=== PATIENT | male | born 1965 ===

== ENCOUNTER 2021-07-13 20:10 | Emergency (ER) | payer SELFPAY ==
--- NOTE | 2021-07-13 22:33 | Emergency Department Report ---
ED Shortness of Breath HPI - General Chief Complaint: Dyspnea/Respdistress Stated Complaint: SOB Time Seen by Provider: 07/13/21 21:49 Source: EMS Mode of arrival: Stretcher Limitations: No Limitations - History of Present Illness Initial Comments: 56-year-old male with a past medical history of gout and smoking presents to the hospital with complaints of sudden onset of shortness of breath after taking ibuprofen and indomethacin together because of right great toe. Shortly afterwards patient developed right hand tremor, shortness of breath, and lig htheadedness. Symptoms resolved 30 minutes after ED arrival. As per triage document patient had a resting saturation 90% and received 2 L nasal cannula. Patient denies receiving oxygen or any other treatment around to the hospital. Is currently asymptomatic reports feeling better. Denies cough or cold symptoms, fever, loss of sense of taste or smell, he is unvaccinated for Covid. He denies hearing wheezing or history of COPD, PE, or DVT - Related Data Allergies Allergy/AdvReac Type Severity Reaction Status Date / Time No Known Allergies Allergy Unverified 07/13/21 22:11 ED Review of Systems ROS: Stated complaint: SOB Other details as noted in HPI Comment: All other systems reviewed and negative ED Past Medical Hx - Past Medical History Previous Medical History?: Yes Additional medical history: GOUT - Surgical History Past Surgical History?: No ED Physical Exam - General Limitations: No Limitations - Other Other exam information: General: No acute distress Head: Atraumatic Eyes: normal appearance ENT: Moist mucous membranes Neck: Normal appearance, no midline tenderness Chest: Clear to auscultation bilaterally CV: Regular rate and rhythm Abdomen: Soft, normal bowel sounds, nontender, nondistended, no rebound or guarding Back: Normal inspection Extremity: Normal inspection, full range of motion, no calf tenderness or leg edema Neuro: Alert O x 3, no facial asymmetry, speech clear, no gross motor sensory deficit Psych: Appropriate behavior Skin: No rash ED Course Vital Signs 07/13/21 07/13/21 20:10 23:00 Temperature 98.7 F Pulse Rate 68 73 Respiratory 18 17 Rate Blood Pressure 142/93 140/92 [Right] O2 Sat by Pulse 94 98 Oximetry ED Medical Decision Making - EKG Data -: EKG Interpreted by Me EKG shows normal: sinus rhythm, intervals (qtc normal), QRS complexes (qrsd normal), ST-T waves (no stemi) Rate: normal - EKG Data When compared to previous EKG there are: previous EKG unavailable - Radiology Data Radiology results: report reviewed Chest x-ray normal - Medical Decision Making 56-year-old male presents to the hospital with transient symptoms after taking indomethacin and ibuprofen which has since resolved. Vital signs within normal range and remained so upon repeat values. Chest x-ray normal. Patient asymptomatic. Patient counseled to only take indomethacin and do not take it with ibuprofen since they are both NSAIDs Critical Care Time: No Critical care attestation.: If time is entered above; I have spent that time in minutes in the direct care of this critically ill patient, excluding procedure time. ED Disposition Clinical Impression: Adverse drug reaction Disposition: HOME / SELF CARE / HOMELESS Is pt being admited?: No Does the pt Need Aspirin: No Condition: Stable Instructions: Steps to Quit Smoking, Ymic-og-Redy, Accidental Drug Poisoning, Adult, Ibuprofen tablets and capsules, Indomethacin capsules Additional Instructions: It is unclear what the cause your symptoms are today. However, indomethacin and ibuprofen are the same class of medication and they should not be taken together. Continue indomethacin as needed for gout related pain. Return if symptoms worsen as indicated by your discharge instructions. Follow-up with your doctor or the doctor provided for further evaluation. Referrals: OSMANI RYDER MD [Staff Physician] - 3-5 Days RICARDO WILSON MD [Staff Physician] - 3-5 Days Time of Disposition: 23:02
--- NOTE | 2021-07-13 22:51 | XRay Report ---
CHEST 2 VIEWS INDICATION / CLINICAL INFORMATION: transient sob. COMPARISON: None available. FINDINGS: SUPPORT DEVICES: None. HEART / MEDIASTINUM: No significant abnormality. LUNGS / PLEURA: No significant pulmonary abnormality. No significant pleural effusion. No pneumothora x. ADDITIONAL FINDINGS: No significant additional findings. IMPRESSION: 1. No acute abnormality of the chest. Signer Name: Diego Cristobal MD Signed: 07/13/2021 10:47 PM Workstation Name: [id number]
[2021-07-13 23:01] VITALS: BP 140/92
--- NOTE | 2021-07-14 17:38 | Electrocardiograph Report ---
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
== END 2021-07-14 06:20 | disposition home or self-care (01) ==
LOC: ED 20:10
DX: R06.02 Shortness of breath (principal); R25.1 Tremor, unspecified; T39.315A Adverse effect of propionic acid derivatives, initial encounter; R42 Dizziness and giddiness; Y92.89 Other specified places as the place of occurrence of the external cause
CPT/HCPCS: 71046; 93005; 99283